=== PATIENT | female | born 2000 | race Caucasian/White ===

== ENCOUNTER → 2020-10-20 15:31 | Outpatient (BNVA) | payer SELFPAY | PROVIDERS: Visit Provider Obstetrics & Gynecology | DX: Z30.431 Encounter for routine checking of intrauterine contraceptive device (principal) | CPT/HCPCS: 87070; 87205 ==

== ENCOUNTER 2022-02-01 13:04 | Emergency (ER) | payer OTHER, SELFPAY ==
--- NOTE | 2022-02-01 13:05 | XR_ITS ---
WS: [id number] EXAMINATION: XR chest 1V portable [id number] REASON FOR EXAM: sob COMPARISON: None available. ORDER DATE: 02/01/2022 1:08 PM TECHNIQUE: A single, portable frontal chest x-ray was obtained. X-RAY FINDINGS: The lungs are clear. Pleural spaces are clear. No pleural effusions or pneumothorax. Cardiomediastinal silhouette is normal. No evidence for pulmonary edema. Soft tissue and osseous structures are unremarkable. No tubes or lines are present. XR/XR chest 1V portable [id number] IMPRESSION: Unremarkable frontal portable chest x-ray.
[2022-02-01 13:41] VITALS: BP 119/80; PULSE 83; RESP 16; TEMP 37.2; O2SAT 99
--- NOTE | 2022-02-01 14:59 | ED_ITS ---
HPI - General Adult General: Chief complaint: General Medical Stated complaint: SOB Time Seen by Provider: 02/01/22 14:55 History of Present Illness: Patient is a 21-year-old female comes to the ED with pleuritic rib pain. Symptoms started 1 week ago. She states that approximately 4 days ago she went to her chiropractor and they made an adjustment and told her that she had a couple ribs out of place. She had some relief initially after she had chiropractic adjustment. Day after chiropractic adjustment she had worse rib pain. Pain is located in the posterior aspect of chest. She rates it currently a 4 out of 10. Denies any other injury to cause pain or symptoms. Associated symptoms: Deny chest pain, dyspnea, headache(s), nausea, rash, palpitations or vomiting Review of Systems Const: Reports: body aches; Denies: fever(s), chills or fatigue Eyes: Denies: change in vision or eye discomfort ENMT: Denies: throat pain, odynophagia, nasal discharge or nasal congestion Card: Denies: chest pain, palpitations, edema, swelling of feet/ankles, dyspnea on exertion or orthopnea Resp: Reports: pain on inspiration; Denies: dyspnea, productive cough or non-productive cough GI: Denies: abdominal pain, nausea, vomiting, diarrhea, constipation or hematochezia : Denies: flank pain, dysuria or hematuria Musc: Denies: neck pain, back pain or extremity swelling Skin/Breast: Denies: rash or new lesions Neuro: Denies: headache(s), numbness in extremities or weakness in extremities PFS ED PFSH: Medical History (Updated 02/01/22 @ 15:21 by SHERRY Andino) No pertinent past medical history Surgical History No pertinent past surgical history Family History Grandmother Diabetes maternal Grandfather Diabetes maternal Heart disease paternal Mother Hypercholesteremia Hypertension Father Hypercholesteremia Hypertension Social History Smoking and tobacco status: never smoked Alcohol intake: never Physical Exam Const: COMMON NORMALS: no acute distress, patient oriented x3, healthy appearing and alert GENERAL APPEARANCE: cooperative and comfortable HENMT: COMMON NORMALS: normocephalic HEAD & SCALP: normocephalic MOUTH: Normal oral and palatal mucosa present THROAT: posterior oropharynx normal and uvula midline Neck/C-Spine: COMMON NORMALS: supple GENERAL: Yes normal visual inspection Resp: COMMON NORMALS: normal respiratory effort, No retractions, No use of accessory muscles and clear to auscultation bilaterally AUSCULTATION: clear to auscultation bilaterally Cardio: COMMON NORMALS: regular rate, regular rhythm, S1 normal heart sound present, S2 normal heart sound present, No gallops present (Cardio), No clicks present (Cardio), No murmurs present (Cardio) and Peripheral pulses 2+ throughout RATE: regular rate RHYTHM: regular rhythm HEART SOUNDS: S1 normal heart sound present and S2 normal heart sound present PERIPHERAL PULSES: Peripheral pulses 2+ throughout GI: COMMON NORMALS: Normal to inspection, nondistended, normoactive bowel sounds present, Soft to palpation, non-tender and no masses PALPATION: Yes Soft to palpation : COMMON NORMALS: Yes no CVA tenderness BLADDER/KIDNEY EXAM: Yes no CVA tenderness Back/Pelvis: COMMON NORMALS: no CVA tenderness Extremity: COMMON NORMALS: normal to inspection Neuro: COMMON NORMALS: patient oriented x3 SENSORIUM/ORIENTATION: Yes alert GAIT: Yes Normal gait present Skin: GENERAL SKIN EXAM: dry skin Course Vital Signs: Vital signs: Vital Signs Temperature 99.0 F 02/01/22 13:41 Pulse Rate 83 02/01/22 13:41 Respiratory Rate 16 02/01/22 13:41 Blood Pressure 119/80 02/01/22 13:41 Pulse Oximetry 99 02/01/22 13:41 [facility] - General Adult Medical Decision Making Patient is a 21-year-old female comes to the ED with pleuritic rib pain. Symptoms started 1 week ago. She states that approximately 4 days ago she went to her chiropractor and they made an adjustment and told her that she had a couple ribs out of place. She had some relief initially after she had chiropractic adjustment. Day after chiropractic adjustment she had worse rib pain. Pain is located in the posterior aspect of chest. She rates it currently a 4 out of 10. Denies any other injury to cause pain or symptoms. Vitals are stable. Exam is benign and patient appears nontoxic in no acute distress or pain. Chest x-ray shows no acute findings. Patient was given dose of Toradol here in the ED discharged home with pleuritic pain. Told to follow-up with PCP in the next week for reevaluation. Return to ED precautions given. Patient understood and agreed with plan. Lab Data Radiology Impressions Chest X-Ray 02/01/22 13:05 IMPRESSION: Unremarkable frontal portable chest x-ray. Discharge Plan Discharge Patient Disposition: Home Clinical Impression: Pleuritic pain Condition: Stable Prescriptions: New ibuprofen 800 mg tablet 800 mg PO Q8H PRN (Reason: pain) Qty: 20 0RF Discharge Orders: Discharge ED (Routine); Ordered 02/01/22 Ordered By: Tyrone Peterson Discharge Diet: Regular Discharge Activity: Increase activity as tolerated Patient Instructions: Pleurisy (ED) Activity Restrictions/Additional Instructions: Follow-up with medical provider as directed in the next 7 to 10 days for reevaluation. Take medications as prescribed. Apply cold pack on sore area of chest and back multiple times a day for approximately 15 minutes each to help with symptoms. Return to the ER or your medical provider if condition worsens. Please read and understand discharge instructions. Thank you for choosing [facility] for your healthcare needs today. Sebastien alejandre realize this is an emergency room and that we are providing you with a medical screening exam and this may not be complete and all inclusive of all the testing and or work up that you may need to determine your ailment or severity of your illness. It is very important that you follow up as instructed or that you return to the Emergency Department should you have concerns or if your condition changes or worsens in any way. Coding Level of Care Code ED Olive Grader for Ludwig Alvarez Exam Comprehensive
[2022-02-01] MEDS: ketorolac 60 mg/2 mL INJ IM (15:36)
== END 2022-02-01 15:41 | disposition home or self-care (01) ==
PROVIDERS: Emergency Provider Physician Assistant
DX: R09.1 Pleurisy (principal)
CPT/HCPCS: 71045; 96372; 99284; J1885

== ENCOUNTER → 2022-03-19 09:00 | Outpatient (BNVA) | payer OTHER, SELFPAY | PROVIDERS: Visit Provider Obstetrics & Gynecology | DX: Z12.4 Encounter for screening for malignant neoplasm of cervix (principal) | CPT/HCPCS: 88175 ==

== ENCOUNTER 2024-12-16 09:47 | Emergency (ER) | payer OTHER, SELFPAY ==
[2024-12-16 09:50] VITALS: BP 121/69; PULSE 105; RESP 24; TEMP 36.6; O2SAT 99; BMI 20.1
--- OUTSIDE RECORDS SUMMARY | 2024-12-16 09:50 | XMS_ITS | Patient Health Record ---
Author Organization [facility] Address [address] [place] [address] Care Team Providers Care Grant Officer Name Role Phone Akosua Black Primary Care Provider Allergies No Known Allergies Reason For Referral No Information Social History Tobacco Use: Social History Observation Description Date Details (start date - stop date) Never Smoker NA - NA Social History Drugs/Alcohol: Social Info Question Answer Notes Alcohol Screen (Audit-C) Did you have a drink containing alcohol in the past year? No Points 0 Interpretation Negative Drugs Have you used drugs other than those for medical reasons in the past 12 months? No Tobacco Use: Social Info Question Answer Notes xTobacco Use/Smoking Are you a nonsmoker Additional Details Category Social Info Options Details Drugs/Alcohol: Do you smoke marijuana? De nies Problems Problem Type SNOMED Code ICD Code Onset Dates Problem Status W/U Status Risk Notes Problem Tonsillar calculus (4732006) Tonsillar calculus (J35.8) Active confirmed Plan Of Treatment No Information Insurance Providers Payer Name Payer Address Payer Phone Subscriber Number Group Number Insured Name Patient Relationship to Insured Coverage Start Date Coverage End Date [facility] [place] [address] [place] [phone] [id number] Yaquelin Shanks Self - patient is the insured Medical (General) History Medical History History ICD Code None
--- NOTE | 2024-12-16 10:04 | ED_ITS ---
HPI - Abdominal Pain 2 General: Chief Complaint: Abdominal Pain Stated Complaint: L side pain Time Seen by Provider: 12/16/24 09:49 History of Present Illness: 24-year-old female patient presented to the emergency department with sudden onset of left side pain. Patient reported that she was eating breakfast and suddenly started having significant left side pain. Patient denies significant medical history she also denies attempting to use [id number] medications prior to arrival. Patient's last menstrual cycle was on 11/30. Pertinent past history: none Pain Consistency: constant Severity: severe Pain scale (0-10): 9 Quality: stabbing Exacerbating factors: movement Relieving factors: nothing Associated Symptoms: Reports nausea Related Data Date of Last Menstrual Period: 11/30/24 Previous Rx's ?Medication ?Instructions ?Recorded ketorolac 10 mg tablet 10 mg PO Q8H 3 days #9 tabs 12/16/24 Allergies Allergy/AdvReac Type Severity Reaction Status Date / Time No Known Allergies Allergy Verified 03/19/22 08:04 Review of Systems 2 GI: Reports: abdominal pain and nausea : Reports: flank pain (Left-sided) PFSH ED 2 PFSH: Medical History (Updated 12/16/24 @ 12:57 by Elaine Gallardo NP) No pertinent past medical history Surgical History No pertinent past surgical history Family History Grandmother Diabetes maternal Grandfather Diabetes maternal Heart disease paternal Mother Hypercholesteremia Hypertension Psychiatric illness Father Hypercholesteremia Hypertension Denies family history of Colon cancer Hyperlipidemia Breast cancer Lung disease Stroke Social History Substance/Drug Use: never Female Reproductive History: Date of last menstrual period: 11/30/24 Para: 0 Course 2 Vital Signs: Vital signs: Vital Signs Temperature 97.9 F 12/16/24 09:50 Pulse Rate 67 12/16/24 13:12 Respiratory Rate 22 H 12/16/24 10:18 Blood Pressure 110/62 12/16/24 13:12 Pulse Oximetry 99 12/16/24 13:12 Oxygen Delivery Me thod Room Air 12/16/24 09:50 MDM - Abdominal Pain Medical Decision Making 24-year-old female patient presented to the emergency department today post onset of left eye pain. Patient reported she has had no significant medical history. She denies any vaginal discharge, burning with urination, blood in her urine, she does report that she is having some nausea and stabbing pain 9 out of 10 in the left mid to upper quadrant. CBC and CMP are both reassuring, urinalysis consistent with a recently passed kidney stone showing a large amount of blood in the urine. There is no indication of urinary tract infection, wet prep was performed and is negative for trichomonas, BV, or candidiasis. Patient is also negative for gonorrhea and chlamydia. CT of the abdomen shows mild delay in the left nephrogram. Mild left renal pelvic enlargement, without hydronephrosis. No urinary calculi noted. Findings could represent recently passed calculus or an inflammatory process such as ureteritis or pyelonephritis. Patient was given fentanyl as well as Toradol for pain control she is feeling much better after a liter of normal saline as well. She is given a prescription for Toradol and instructed on increasing her oral rehydrating. She is hemodynamically stable and appropriate for discharge. Differential Diagnosis Likely abdominal pain, calculus of kidney, constipation and endometriosis Lab Data 12/16/24 10:21 12/16/24 10:21 Labs/Radiology: Radiology Impressions Abdomen/Pelvis CT 12/16/24 11:07 IMPRESSION: Mild delay in the left nephrogram. Mild left renal pelvic enlargement, without hydronephrosis. No urinary calculi noted. Findings could represent recently passed calculus or an inflammatory process such as ureteritis or pyelonephritis. Laboratory Results WBC 8.07 10^3/uL (3.29-11.43) 12/16/24 10:21 RBC 4.40 10^6/uL (3.85-5.65) 12/16/24 10:21 Hgb 12.50 g/dL (11.27-16.99) 12/16/24 10:21 Hct 37.4 % (36-47) 12/16/24 10:21 MCV 85.0 fl (85-98) 12/16/24 10:21 MCH 28.4 pg (27-33) 12/16/24 10:21 MCHC 33.4 g/dL (30-55) 12/16/24 10:21 RDW 12.3 % (12.1-15.1) 12/16/24 10:21 Plt Count 221 10^3/cmm (157-399) 12/16/24 10:21 MPV 9.8 fL (7.4-10.4) 12/16/24 10:21 Neut % (Auto) 71.5 % 12/16/24 10:21 Lymph % (Auto) 16.5 % 12/16/24 10:21 Cloud % (Auto) 9.4 % 12/16/24 10:21 Eos % (Auto) 1.6 % 12/16/24 10:21 Baso % (Auto) 0.6 % 12/16/24 10:21 Neut # (Auto) 5.77 10^3/uL (1.8-7.7) 12/16/24 10:21 Lymph # (Auto) 1.3 10^3/uL (0.8-4.8) 12/16/24 10:21 Cloud # (Auto) 0.8 10^3/uL (0.2-0.9) 12/16/24 10:21 Eos # (Auto) 0.1 10^3/uL (0.0-0.8) 12/16/24 10:21 Baso # (Auto) 0.1 10^3/uL (0.0-0.1) 12/16/24 10:21 Nucleated RBC % (auto) 0 % 12/16/24 10:21 Nucleated RBCs # 0.0 /100WBC 12/16/24 10:21 Sodium 141 mmol/L (136-145) 12/16/24 10:21 Potassium 3.8 mmol/L (3.5-5.1) 12/16/24 10:21 Chloride 105 mmol/L (98-107) 12/16/24 10:21 Carbon Dioxide 22 mmol/L (22-29) 12/16/24 10:21 Anion Gap 17.8 (5-19) 12/16/24 10:21 BUN 11 mg/dL (6-20) 12/16/24 10:21 Creatinine 0.6 mg/dL (0.5-0.9) 12/16/24 10:21 GFR Calculation 122.8 mL/min (90-130) 12/16/24 10:21 Glucose 101 mg/dL (65-115) 12/16/24 10:21 Calculated Osmolality 292 mOsm/kg (285-295) 12/16/24 10:21 Calcium 9.1 mg/dL (8.5-10.5) 12/16/24 10:21 Total Bilirubin 0.4 mg/dL (0.15-1.2) 12/16/24 10:21 AST 16 U/L (0-32) 12/16/24 10:21 ALT 19 U/L (0-33) 12/16/24 10:21 Alkaline Phosphatase 56 U/L (35-105) 12/16/24 10:21 Total Protein 6.8 g/dL (6.6-8.7) 12/16/24 10:21 Albumin 4.5 g/dL (3.5-5.2) 12/16/24 10:21 Globulin 2.3 g/dL (1.3-4.6) 12/16/24 10:21 Lipase 28 U/L (13-60) 12/16/24 10:21 HCG, Qual Negative (Negative) 12/16/24 10: Urine Color Yellow (Yellow) 12/16/24 10:26 Urine Appearance Clear (CLEAR) 12/16/24 10: Urine pH 6.0 (5-7) 12/16/24 10: Ur Specific [place] 1.020 (1.005-1.030) 12/16/24 10: Urine Protein Trace (Negative) A 12/16/24 10: Urine Glucose (UA) Negative (Normal) 12/16/24 10: Urine Ketones Negative (Negative) 12/16/24 10: Urine Blood 3+ (Negative) A 12/16/24 10: Urine Nitrate Negative (Negative) 12/16/24 10: Urine Bilirubin Negative (Negative) 12/16/24 10: Urine Urobilinogen 1.0 mg/dL (Negative) 12/16/24 10: Ur Leukocyte Esterase Negative (Negative) 12/16/24 10:26 Urine RBC 50-80 /hpf (0-2) H 12/16/24 10:26 Urine WBC 0-4 /hpf (0-5) H 12/16/24 10:26 Ur Squamous Epith Cells 5-10 /hpf (0-5) H 12/16/24 10:26 Amorphous Sediment Not Reportable 12/16/24 10:26 Urine Bacteria Trace /hpf (NONE) 12/16/24 10:26 C. trachomatis (PCR) Not detected (Negative) 12/16/24 10:26 N. gonorrhoeae (PCR) Not detected (Negative) 12/16/24 10:26 All radiology interpretation(s) finalized by discharge Discharge Plan Discharge Patient Disposition: Home Clinical Impression: Calculus of kidney, Hydronephrosis, left Condition: Stable Prescriptions: New ketorolac 10 mg tablet 10 mg PO Q8H 3 Days Qty: 9 0RF Discharge Orders: Discharge ED (Routine); Ordered 12/16/24 Ordered By: Elaine Gallardo Discharge Diet: Advance as tolerated Discharge Activity: Resume usual activity Patient Instructions: Kidney Stones (ED), Flank Pain (ED), Opioid Safety, Pain Management, Patient Portal & Harriet Instructions Activity Restrictions/Additional Instructions: Please increase your oral intake of hydrating fluids. Please increase your intake of fiber. Please follow-up with primary care in the next month. You have cultures that are pending you may be contacted if they grow anything abnormal. Print Language: Tajik Coding Level of Care Code ED Dairy Equipment Installer for Ludwig Alvarez
[2024-12-16] MEDS: ondansetron 2 mg/ML SDV 2 mL 4 MG IVP (10:17)
[2024-12-16 10:18] VITALS: RESP 22; O2SAT 96
[2024-12-16] MEDS: fentaNYL 50 mcg/mL INJ 2mL IVP (10:18)
[2024-12-16 10:27] LABS: Hematocrit 37.4 % (36-47); Hemoglobin 12.50 g/dL (11.27-16.99); Mean Corpuscular HGB Conc 33.4 g/dL (30-55); Mean Corpuscular Hemoglobin 28.4 pg (27-33); Mean Corpuscular Volume 85.0 fl (85-98); Nucleated Red Blood Cells % 0 %; Platelet Count 221 10^3/cmm (157-399); Red Blood Count 4.40 10^6/uL (3.85-5.65); White Blood Count 8.07 10^3/uL (3.29-11.43)
[2024-12-16 10:40] LABS: HCG Qualitative Urine. Negative (Negative)
[2024-12-16 10:42] LABS: Alanine Aminotransferase 19 U/L (0-33); Albumin Level 4.5 g/dL (3.5-5.2); Alkaline Phosphatase 56 U/L (35-105); Anion Gap 17.8 (5-19); Aspartate Amino Transferase 16 U/L (0-32); Blood Urea Nitrogen 11 mg/dL (6-20); Calcium 9.1 mg/dL (8.5-10.5); Carbon Dioxide 22 mmol/L (22-29); Chloride 105 mmol/L (98-107); Creatinine Clr Calc Pharmacy 132.9721; Globulin 2.3 g/dL (1.3-4.6); Glucose 101 mg/dL (65-115); Lipase 28 U/L (13-60); Osmolality Calculated 292 mOsm/kg (285-295); Potassium 3.8 mmol/L (3.5-5.1); Sodium 141 mmol/L (136-145); Total Protein 6.8 g/dL (6.6-8.7)
[2024-12-16 10:44] LABS: Glucose Urine UA Negative (Normal); Nitrate Urine Negative (Negative); Specific Gravity, Urine 1.020 (1.005-1.030)
[2024-12-16 10:57] LABS: UA Manual Slide Review YES
[2024-12-16 11:07] LABS: HCG, Serum Qual Negative (Negative)
--- NOTE | 2024-12-16 11:07 | CTR_ITS ---
PROCEDURE INFORMATION: Exam: CT Abdomen And Pelvis Without And With Contrast Exam date and time: 12/16/2024 11:14 AM Age: 24 years old Clinical indication: Abdominal pain; Flank; Left; Additional info: Left flank pain TECHNIQUE: Imaging protocol: Computed tomography of the abdomen and pelvis without and with contrast. Radiation optimization: All CT scans at this facility use at least one of these dose optimization techniques: automated exposure control; mA and/or kV adjustment per patient size (includes targeted exams where dose is matched to clinical indication); or iterative reconstruction. Contrast material: OMNI 350; Contrast volume: 80 ml; Contrast route: INTRAVENOUS (IV); COMPARISON: CR XR chest 1V portable [id number] 02/01/2022 1:27 PM RADIATION DOSE METRICS: Total DLP (mGy-cm): 749.79 FINDINGS: Liver: Normal. No mass. Gallbladder and biliary ducts: Gallbladder is partially contracted. No calcified gallstones or pericholecystic inflammatory changes.There is no evidence of biliary ductal dilation. Pancreas: The pancreas is normal. No mass. Spleen: The spleen is normal. Adrenal glands: Normal. No mass. Kidneys and ureters: Mild delay in the left nephrogram. Mild left renal pelvic enlargement, without hydronephrosis. No urinary calculi noted. Normal right kidney. Stomach and bowel: Bowel caliber is normal. No paracolonic inflammatory changes. Appendix: Normal appendix. Intraperitoneal space: Very small amount of free fluid in the posterior pelvis. No free intraperitoneal gas. Vasculature: Unremarkable. No abdominal aortic aneurysm. Lymph nodes: Unremarkable. No enlarged lymph nodes. Urinary bladder: No focal wall thickening of the urinary bladder. Reproductive: Uterus and ovaries are normal in size. A 2 cm collapsing follicle is noted in the right ovary. Bones/joints: Unremarkable. No acute fracture. Soft tissues: Unremarkable. CT/CT abdomen pelvis wo/w [id number] IMPRESSION: Mild delay in the left nephrogram. Mild left renal pelvic enlargement, without hydronephrosis. No urinary calculi noted. Findings could represent recently passed calculus or an inflammatory process such as ureteritis or pyelonephritis.
[2024-12-16] MEDS: iohexol 350 mg/mL 500 mL Btl (per mL) IV (11:19)
[2024-12-16 12:00] VITALS: BP 119/71; PULSE 66; O2SAT 99
[2024-12-16 12:44] LABS: Neisseria Gonorrhea NOT DETECTED (Negative)
[2024-12-16 13:12] VITALS: BP 110/62; PULSE 67; O2SAT 99
== END 2024-12-16 13:13 | disposition home or self-care (01) ==
PROVIDERS: Emergency Provider Nurse Practitioner
DX: N13.30 Unspecified hydronephrosis (principal); N20.0 Calculus of kidney
CPT/HCPCS: 74178; 80053; 81001; 81025; 83690; 84703; 85025; 87086; 87210; 87491; 87591; 96374; 96375; 99285; J1885; J2405; J3010; J7030